=== PATIENT | female | born 1980 | race Caucasian/White ===

== ENCOUNTER → 2017-04-25 | Outpatient (CLI) | payer BC ==
--- NOTE | 2017-04-25 11:47 | WWHP ---
[facility] - HISTORY AND PHYSICAL DATE OF DICTATION: 04/25/2017. CHIEF COMPLAINT: The patient is here for her routine gynecologic exam. HPI: This is a 36-year-old, G3, P3 0-0-2 with an LMP of 04/06/2017. The patient was using the NuvaRing for control, but her prescription recently ran out. She also felt that she was more sung with the NuvaRing and also had a lower libido. She thinks this has improved since she has stopped using the NuvaRing. She believes she had done better with Vanessa in the past and is interested in trying this again. She is also experiencing occasional urinary leakage with coughing and sneezing. She now wears a pad because of this. She denies any urge incontinence symptoms. She also denies any dysuria or urinary frequency. PAST MEDICAL HISTORY: Unremarkable. MEDICATIONS: None. ALLERGIES: No known drug allergies. PAST SURGICAL HISTORY: in the past, wisdom teeth removed. PAST [employer] [facility] HISTORY: She has no history of STDs. 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 FAMILY HISTORY: Unchanged from the 2015 H and P. REVIEW OF SYSTEMS: She has gained about 17 pounds over the past year. She denies respiratory, cardiac or GI problems. PHYSICAL EXAM: Blood pressure 121/81, height 5 feet 6 inches, weight 207 pounds. BMI 33. Temperature 98.1, pulse 72. This is a well-developed, heavyset white female, who is alert and oriented x3, in no acute distress. HEENT: Within normal limits. NECK: Supple without mass or thyromegaly. Chest and lungs: Clear to auscultation. HEART: Regular rate and rhythm. Breasts are without mass or discharge. Axillary exam is negative for adenopathy. Back negative for CVA tenderness. ABDOMEN: Soft, nontender, without palpable masses. Pelvic exam normal external genitalia. Cervix and vagina appear normal. There is no significant prolapse noted. There is no cervical motion tenderness. With Valsalva and cough there is a small amount of urethral mobility, but no significant cystocele is noted. No urinary leakage was demonstrated. The uterus is multiparous, nongravid size and retroverted. The uterus is nontender. There are no palpable adnexal masses or tenderness. Rectal exam is negative for mass or tenderness and there is normal sphincter tone. EXTREMITIES: Nontender. IMPRESSION: 1. A 36-year-old female with normal gynecologic exam. 2. The patient is requesting a change in her control and would like to go back on Vanessa. 3. Mild stress urinary incontinence without significant physical findings at this time. PLAN: 1. Pap smear was deferred since she had a normal one last year. 2. Self breast examination was discussed. 3. We have had a long discussion regarding her urinary leakage. I have recommended Kegel exercises and timed voids. Instructions for Kegel exercise was given to the patient. The patient will call if she is not having significant improvement and we can consider referral to a [facility] urologist for further evaluation and possible treatment. 4. The patient was given a prescription for Vanessa and she is to take one p.o. daily and this will be started on the Sunday following the onset of her next normal menstrual period. I have recommended that she use an alternate method through the first pack. We have discussed possible risks with control pills including possible increased risk for blood clots. 5. We have discussed various options for control, including male and female sterilization, barrier methods, IUD as well as other hormonal methods. 6. She will return in 1 year and p.r.n. MMASTRID / AYAANN: [id number] /
== END ==
LOC: WWCWWP 08:06
PROVIDERS: ATTEND Obstetrics & Gynecology
DX: Z01.419 Encounter for gynecological examination (general) (routine) without abnormal findings (principal)

== ENCOUNTER 2018-09-11 06:34 | Day surgery (SDC) | payer BC ==
[2018-09-04 13:49] VITALS: BMI 34.5
[~2018-09-11 06:34] MED LIST: DEXAMETHASONE SOD PHOSPHATE 10 MG/ML 1 ML VIAL IV ONE; HEPARIN SODIUM,PORCINE 5,000 UNIT/ML 1 ML VIAL SQ ONE; HYDROmorphone 0.5 MG/0.5 ML SYRINGE IVP PRN; LACTATED RINGERS 1,000 ML IV SCH; LIDOCAINE 1% 20 ML VIAL (10MG/ML) FOR IV START INTRADERMA PRN; ONDANSETRON 4 MG/2 ML VIAL IVP ONE; SCOPOLAMINE 1.5MG/72HR PATCH TRANSDERM ONE; ceFAZolin IN SWFI 2 GM/20 ML SYRINGE IVP ONE
--- NOTE | 2018-09-11 07:50 | P.GSHP ---
History of Present Illness H&P Date: 09/11/18 Chief Complaint: Umbilical hernia This is a 38-year-old female who presents today for laparoscopic robotic- assisted repair of umbilical hernia. Patient developed a tender mass in her umbilicus. Past Medical History Past Medical History: GERD/Reflux Additional Past Medical History / Comment(s): migraines, History of Any Multi-Drug Resistant Organisms: None Reported Past Surgical History: Section Additional Past Surgical History / Comment(s): oral surgery Past Anesthesia/Blood Transfusion Reactions: Family History of Problems w/ Anesthesia, Motion Sickness Additional Past Anesthesia/Blood Transfusion Reaction / Comment(s): mother and sister PONV Smoking Status: Never smoker - Past Family History Mother Family Medical History: No Reported History Medications and Allergies Home Medications Medication Instructions Recorded Confirmed Type Multivitamins, Thera [Multivitamin 1 tab PO DAILY 09/04/18 09/11/18 History (formulary)] Allergies Allergy/AdvReac Type Severity Reaction Status Date / Time sulfamethoxazole Allergy Rash/Hives Verified 09/11/18 06:43 [From Bactrim] trimethoprim [From Bactrim] Allergy Rash/Hives Verified 09/11/18 06:43 metal Allergy Rash/Hives Uncoded 09/11/18 06:43 Surgical - Exam Vital Signs Temp Pulse Resp BP Pulse Ox 99.3 F 81 16 132/76 97 09/11/18 06:57 09/11/18 06:57 09/11/18 06:57 09/11/18 06:57 09/11/18 06:57 - General well developed, well nourished, no distress - Eyes PERRL - ENT normal pinna - Neck no masses - Respiratory normal expansion - Cardiovascular Rhythm: regular - Abdomen Abdomen: soft, non tender Hernia: umbilical (3 cm umbilical hernia) Assessment and Plan Assessment: Umbilical hernia. We'll perform laparoscopic robotic-assisted repair.
[2018-09-11] MEDS ORDERED: MIDAZOLAM 2 MG/2 ML VIAL ONE (08:07)
[2018-09-11] MEDS ORDERED: GLYCOPYRROLATE 0.2 MG/ML 2 ML VIAL ONE (08:07)
[2018-09-11] MEDS ORDERED: LIDOCAINE 1% INJ 10MG/ML (20 ML MDV) ONE (08:07)
[2018-09-11] MEDS ORDERED: PROPOFOL 10 MG/ML 20 ML VIAL IV ONE (08:07)
[2018-09-11] MEDS ORDERED: ROCURONIUM BROMIDE 10 MG/ML 10 ML VIAL IV ONE (08:07)
[2018-09-11] MEDS ORDERED: fentaNYL (PF) 50 MCG/ML 2 ML AMP ONE (08:07)
[2018-09-11] MEDS ORDERED: KETOROLAC 30 MG/ML 1 ML VIAL ONE (08:07)
[2018-09-11] MEDS ORDERED: ROPIVACAINE 5 MG/ML 30 ML VIAL ONE (08:07)
[2018-09-11] MEDS ORDERED: NEOSTIGMINE 1 MG/ML 10 ML VIAL ONE (08:07)
[2018-09-11] MEDS ORDERED: BUPIVACAIN-EPI 0.5%-1:200,000 30 ML VIAL SQ ONE (08:29)
--- NOTE | 2018-09-11 08:52 | P.ONQ ---
Anesthesiology Proc Note - PNB - Peripheral Nerve Block Performed Bilateral Rectus Abdominis Single Time Out Performed: Yes Procedure Start Time: 07:50 Procedure Stop Time: 08:00 Indication: Acute Post-Operative Pain, Requested by physician Sedation Type: Sedate with meaningful contact maintained Preparation: Sterile Prep Position: Supine Catheter: None Needle Size: 100mm (4") Needle Gauge: 20 Technique: Ultrasound Injectate: 0.5% Ropivacaine (see comment for volume) Blood Aspirated: No Pain Paresthesia on Injection Noted: No Resistance on Injection: Normal Events: Uneventful and Well Tolerated (30ml total Ropivivaine administered)
[2018-09-11] MEDS ORDERED: LACTATED RINGERS 1,000 ML IV ONE (08:57)
[2018-09-11 09:27] VITALS: TEMP 97
--- NOTE | 2018-09-11 09:55 | P.OP ---
Date of Procedure: 09/11/18 Preoperative Diagnosis: Umbilical hernia Postoperative Diagnosis: Umbilical hernia Procedure(s) Performed: Laparoscopic robotic-assisted repair of umbilical hernia Anesthesia: MELI Surgeon: Ovidio Evans Estimated Blood Loss (ml): 5 Pathology: none sent Condition: stable Disposition: PACU Description of Procedure: The patient was placed on the operating table in the supine position. He received general anesthesia. His abdomen was prepped and draped usual fashion. Using a 5 mm optical trocar under direct visualization the peritoneal cavity was entered in the left upper quadrant. The abdomen was then insufflated. The laparoscope was placed back into the perineal cavity. Next a 8 mm robotic trocar was placed in the left lower quadrant and a 12 mm robotic trocar was placed in the left lateral position. The original 5 mm trocar was exchanged for a 8 mm robotic trocar. The patient's placed in the left side up position. And the patient was undocked the robot. The umbilical hernia was visualized. Using hook cautery the peritoneum over the umbilical hernia was excised. The fascial opening was repaired using 0V LOC suture. Next a piece of 11 cm round ventral light ST mesh was placed into the. Cavity and secured with 2 OV lock suture. The patient was undocked the robot. The needles were retrieved. The fascia of the 12 mm trocar site was closed with 0 Ethibond suture. Skin was closed interrupted 3-0 Monocryl suture. Dermabond dressings was applied. Patient top procedure well and was sent to recovery room stable condition.
[2018-09-11 10:47] VITALS: BP 112/71; PULSE 65; RESP 18
[2018-09-11] MEDS ORDERED: HYDROcodone/APAP 5-325MG 1 EACH TAB PO ONE (11:45)
== END 2018-09-11 12:08 | disposition home or self-care (01) ==
LOC: OR 06:34
PROVIDERS: ATTEND Surgery
DX: K42.9 Umbilical hernia without obstruction or gangrene (principal); K21.9 Gastro-esophageal reflux disease without esophagitis; Z79.899 Other long term (current) drug therapy; Z88.1 Allergy status to other antibiotic agents; Z88.2 Allergy status to sulfonamides; Z91.048 Other nonmedicinal substance allergy status
CPT/HCPCS: 49652; S2900; 64488; 81025

== ENCOUNTER 2018-09-19 09:18 | Emergency (ER) | payer BC ==
[2018-09-19 09:24] VITALS: RESP 18; TEMP 98.4
[2018-09-19] MEDS ORDERED: EPINEPHrine 1 MG/ML 1 ML AMP SQ STA (10:02)
[2018-09-19] MEDS ORDERED: FAMOTIDINE 20 MG TAB PO STA (10:02)
--- NOTE | 2018-09-19 10:38 | ED ---
Allergic Reaction HPI - General Chief complaint: Allergic Reaction Stated complaint: poss allergic reaction Time Seen by Provider: 09/19/18 09:31 Source: patient, RN notes reviewed, old records reviewed Mode of arrival: ambulatory Limitations: no limitations - History of Present Illness Initial Comments: 38-year-old female presents today with concerns for ALLERGIC reaction.She was seen in express given IMSolu-Medrol and Benadryl earlier today. Patient reports that she started noticed hives yesterday. She recently completed a prescription for penicillin. She had hernia repair surgery. At this time Patient states that she is not currently taking antibiotic. She denies any significant tongue swelling. She states she presents of her throat seems to be somewhat swollen. She denies any nausea or vomiting. She states that the hives somewhat down somewhat since yesterday. She complains of hives over bilateral forearms chest back and abdomen. - Related Data Home Medications Medication Instructions Recorded Confirmed Multivitamins, Thera [Multivitamin 1 tab PO DAILY 09/04/18 09/11/18 (formulary)] Previous Rx's Medication Instructions Recorded Docusate [Colace] 100 mg PO BID #20 capsule 09/11/18 HYDROcodone/APAP 7.5-325MG [Weston 1 tab PO Q4H PRN 3 Days #18 tab 09/11/18 7.5-325] diphenhydrAMINE [Benadryl] 25 mg PO BID PRN #20 capsule 09/19/18 predniSONE 20 mg PO BID #10 tab 09/19/18 Allergies Allergy/AdvReac Type Severity Reaction Status Date / Time Penicillins Allergy Anaphylaxis Verified 09/19/18 10:11 sulfamethoxazole Allergy Rash/Hives Verified 09/19/18 10:00 [From Bactrim] trimethoprim [From Bactrim] Allergy Rash/Hives Verified 09/19/18 10:00 metal Allergy Rash/Hives Uncoded 09/11/18 06:43 Review of Systems ROS Statement: Those systems with pertinent positive or pertinent negative responses have been documented in the HPI. ROS Other: All systems not noted in ROS Statement are negative. Past Medical History Past Medical History: GERD/Reflux Additional Past Medical History / Comment(s): migraines, History of Any Multi-Drug Resistant Organisms: None Reported Past Surgical History: Section Additional Past Surgical History / Comment(s): oral surgery Past Anesthesia/Blood Transfusion Reactions: Family History of Problems w/ Anesthesia, Motion Sickness Additional Past Anesthesia/Blood Transfusion Reaction / Comment(s): mother and sister PONV Past Psychological History: No Psychological Hx Reported Smoking Status: Never smoker - Past Family History Mother Family Medical History: No Reported History General Exam - General Exam Comments Initial Comments: 38-year-old female. Alert and oriented. No distress. Limitations: no limitations General appearance: alert, in no apparent distress Head exam: Present: atraumatic, normocephalic, normal inspection Eye exam: Present: normal appearance, PERRL, EOMI. Absent: scleral icterus, conjunctival injection, periorbital swelling ENT exam: Present: normal exam, mucous membranes moist Neck exam: Present: normal inspection. Absent: tenderness, meningismus, lymphadenopathy Respiratory exam: Present: normal lung sounds bilaterally. Absent: respiratory distress, wheezes, rales, rhonchi, stridor Cardiovascular Exam: Present: regular rate, normal rhythm, normal heart sounds. Absent: systolic murmur, diastolic murmur, rubs, gallop, clicks GI/Abdominal exam: Present: soft, normal bowel sounds. Absent: distended, tenderness, guarding, rebound, rigid Extremities exam: Present: normal inspection, full ROM, normal capillary refill. Absent: tenderness, pedal edema, joint swelling, calf tenderness Back exam: Present: normal inspection Neurological exam: Present: alert, oriented X3, CN II-XII intact Psychiatric exam: Present: normal affect, normal mood Skin exam: Present: warm, dry, intact, normal color, rash (Patient has significant urticaria over her forearms and chest and back. ) Course Vital Signs 09/19/18 09/19/18 09:21 09:24 Temperature 98.4 F Pulse Rate 90 Respiratory 18 18 Rate Blood Pressure 141/86 O2 Sat by Pulse 99 Oximetry Medical Decision Making - Medical Decision Making Patient is a 38-year-old female presents today with concerns for ALLERGIC reaction related to penicillin. She's been off and by specimen days. She woke up yesterday with hives over her chest arms and complains of swelling to her hands. At this time Patient complained of some minor lip swelling and throat closing. Her lungs are clear. Tongue appears to be normal. She is given a subcu dose of epinephrine in monitored emergency department soles by mouth Pepcid. She reports that she has significant improvement on reevaluation. Is also evaluated by Dr. Martinez. Patient will be discharged at this time with a c ourse of Benadryl and steroids. Discussed discontinuing any further penicillins. Discussed close monitoring and she had any difficulty breathing. We also discussed following up with dermatology and rheumatology if any further symptoms persist. Disposition Clinical Impression: Allergic drug reaction Disposition: HOME SELF-CARE Condition: Good Instructions (If sedation given, give patient instructions): Anaphylaxis (ED) Additional Instructions: Is advised to avoid hot showers. Follow-up with dermatology if symptoms continue to persist or recur. Patient should take the steroids and Benadryl as prescribed. Return to emergency department if any alarming signs or symptoms occur. Prescriptions: diphenhydrAMINE [Benadryl] 25 mg PO BID PRN #20 capsule PRN Reason: Itching predniSONE 20 mg PO BID #10 tab Is patient prescribed a controlled substance at d/c from ED?: No Referrals: None,Stated [Primary Care Provider] - 1-2 days Alicia Lopez MD [STAFF PHYSICIAN] - 1-2 days Time of Disposition: 11:03
[2018-09-19 11:13] VITALS: BP 122/82; PULSE 85
== END 2018-09-19 11:09 | disposition home or self-care (01) ==
LOC: EC 09:18
DX: R22.33 Localized swelling, mass and lump, upper limb, bilateral (principal); R22.0 Localized swelling, mass and lump, head; T36.0X5A Adverse effect of penicillins, initial encounter; Z88.0 Allergy status to penicillin; Z88.1 Allergy status to other antibiotic agents; Z88.2 Allergy status to sulfonamides; Z91.09 Other allergy status, other than to drugs and biological substances
CPT/HCPCS: 99283; J0171

== ENCOUNTER → 2021-01-18 | Outpatient (CLI) | payer BC ==
[2021-01-18 11:02] VITALS: BP 121/82; PULSE 71; RESP 18; TEMP 98.2
--- NOTE | 2021-01-18 11:39 | P.HPOB ---
History of Present Illness H&P Date: 01/18/21 Chief Complaint: The patient is here for her routine gynecologic exam. This is a 40-year-old 002 with an LMP of 01/13/2021. The patient states she is doing well on oral contraception and does not plan on getting in the near future. She is without gynecologic complaints. Review of Systems She has lost about 8 pounds over the past year. She denies respiratory or cardiac problems. GI: Occasional "Sulfur burps". Past Medical History Past Medical History: GERD/Reflux Additional Past Medical History / Comment(s): migraine. 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 History of Any Multi-Drug Resistant Organisms: None Reported Past Surgical History: Section, Hernia Repair Additional Past Surgical History / Comment(s): oral surgery. Umbilical hernia repair 1999. Past Anesthesia/Blood Transfusion Reactions: Family History of Problems w/ Anesthesia, Motion Sickness Additional Past Anesthesia/Blood Transfusion Reaction / Comment(s): mother and sister PONV Past Psychological History: No Psychological Hx Reported Smoking Status: Never smoker Past Alcohol Use History: None Reported Past Drug Use History: None Reported Additional History: She has been since 2004 and works for [employer]. - Past Family History Mother Family Medical History: Hyperlipidemia Additional Family Medical History / Comment(s): Maternal grandmother had lung cancer. Father Family Medical History: Cancer Additional Family Medical History / Comment(s): Prostate and liver cancer. Medications and Allergies Home Medications Medication Instructions Recorded Confirmed Type Norgestimate-Ethinyl Estradiol 1 each PO DAILY #84 tablet 01/13/20 01/18/21 Rx [Tri-Sprintec Tablet] Allergies Allergy/AdvReac Type Severity Reaction Status Date / Time Penicillins Allergy Anaphylaxis Verified 01/18/21 10:58 sulfamethoxazole Allergy Rash/Hives Verified 01/18/21 10:58 [From Bactrim] trimethoprim [From Bactrim] Allergy Rash/Hives Verified 01/18/21 10:58 metal Allergy Rash/Hives Uncoded 01/18/21 10:58 Exam Vital Signs Temp Pulse Resp BP Pulse Ox 01/18/21 10:59 98.2 F 71 18 121/82 98 Intake and Output 01/17/21 01/18/21 01/18/21 22:59 06:59 14:59 Other: Weight 97.976 kg Height 5 feet 2 inches, weight 216 pounds, BMI 39.5. This is a well-developed well-nourished white female who is alert and oriented times 3 in no acute distress. HEENT: Within normal limits. NECK: Supple without mass or thyromegaly. CHEST AND LUNGS: Clear to auscultation. HEART: Regular rate and rhythm. BREASTS: Are without mass or discharge. AXILLARY EXAM: Negative for adenopathy. BACK: Negative for CVA tenderness. ABDOMEN: Soft, nontender, without palpable masses. PELVIC EXAM: Normal external genitalia. Cervix and vagina appear normal. There is a small amount of menstrual blood in the vagina consistent with her LMP. There is no unusual discharge. There is no evidence of prolapse. The uterus is retroverted, nongravid size and nontender. There are no palpable adnexal masses or tenderness. RECTAL EXAM: negative for mass or tenderness. EXTREMITIES: Nontender. IMPRESSION: 1. 40-year-old female doing well on oral contraception with normal gynecologic exam. PLAN: 1. Pap smear was deferred since she had a normal one on 01/13/2020. 2. Self breast awareness was discussed with the patient. 3. She will continue oral contraception in the electronic prescription will be sent to [facility] pharmacy on . 4. Osteoporosis prevention was discussed. I have stressed the importance of adequate calcium, vitamin D and regular exercise. Recommended amounts of calcium and vitamin D were also discussed. 5. She was advised to return in one year for her annual well woman exam.
== END ==
LOC: WWCWWP 10:43
PROVIDERS: ATTEND Obstetrics & Gynecology
DX: Z01.419 Encounter for gynecological examination (general) (routine) without abnormal findings (principal); G43.909 Migraine, unspecified, not intractable, without status migrainosus; Z88.0 Allergy status to penicillin; Z88.1 Allergy status to other antibiotic agents; Z88.2 Allergy status to sulfonamides

== ENCOUNTER → 2023-02-13 | Outpatient (CLI) | payer BC ==
[2023-02-13 10:08] VITALS: BP 112/80; PULSE 70; RESP 16; TEMP 98.9
--- NOTE | 2023-02-13 10:46 | P.HPOB ---
History of Present Illness H&P Date: 02/13/23 Chief Complaint: The patient is here for her routine gynecologic exam and ma mmogram. This is a 42-year-old 002 with an LMP of 02/05/2023. The patient has been doing well on oral contraception and would like to continue using this. Her prescription ran out last month. She did have a menstrual period off of the presacral pills. She is without gynecologic complaints. Review of Systems The patient's weight has been stable over the last year. She denies respiratory, cardiac, or G.I. problems. Past Medical History Past Medical History: GERD/Reflux Additional Past Medical History / Comment(s): migraine. Plantar fasciitis. 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 History of Any Multi-Drug Resistant Organisms: None Reported Past Surgical History: Section, Hernia Repair Additional Past Surgical History / Comment(s): oral surgery. Umbilical hernia repair 1999. 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 - Past Family History Mother Family Medical History: Hyperlipidemia Additional Family Medical History / Comment(s): Maternal grandmother had lung cancer. Aortic aneurysm. Father Family Medical History: Cancer Additional Family Medical History / Comment(s): Prostate and liver cancer. Medications and Allergies Home Medications Medication Instructions Recorded Confirmed Type Magnesium 200 mg PO DAILY 02/13/23 02/13/23 History Allergies Allergy/AdvReac Type Severity Reaction Status Date / Time Penicillins Allergy Anaphylaxis Verified 02/13/23 10:04 sulfamethoxazole Allergy Rash/Hives Verified 02/13/23 10:04 [From Bactrim] trimethoprim [From Bactrim] Allergy Rash/Hives Verified 02/13/23 10:04 metal Allergy Rash/Hives Uncoded 02/13/23 10:04 Exam Vital Signs Temp Pulse Resp BP Pulse Ox 02/13/23 10:05 98.9 F 70 16 112/80 97 Intake and Output 02/12/23 02/13/23 02/13/23 22:59 06:59 14:59 Other: Weight 97.522 kg Height 5 feet 6 inches, weight 215 pounds, BMI 34.7. This is a well-developed well-nourished white female who is alert and oriented times 3 in no acute distress. HEENT: Within normal limits. NECK: Supple without mass or thyromegaly. CHEST AND LUNGS: Clear to auscultation. HEART: Regular rate and rhythm. BREASTS: Are without mass or discharge. AXILLARY EXAM: Negative for adenopathy. BACK: Negative for CVA tenderness. ABDOMEN: Soft, nontender, without palpable masses. PELVIC EXAM: Normal external genitalia. Cervix and vagina appear normal. Cervix appears multiparous. There is no unusual discharge. There is no evidence of prolapse. The uterus is retroverted, nongravid size and nontender. There are no palpable adnexal masses or tenderness. RECTAL EXAM: negative for mass or tenderness and is negative for occult blood. EXTREMITIES: Nontender. IMPRESSION: 1. 42-year-old female who has been using oral contraception for control, with normal gynecologic exam. PLAN: 1. Pap smear cotest was performed. 2. Self breast awareness was discussed with the patient. We have also discussed symptoms associated with inflammatory breast cancer. 3. Screening mammogram will be done today. This will be her baseline mammogram. 4. Patient will be restarted on oral contraception. The prescription for Tri- Sprintec will be sent to [facility] pharmacy on . She will start the pills on the Sunday following the onset of her next normal menstrual period. I recommended that she use condoms through the first pack of pills. 5. We have discussed the availability of the HPV vaccination for her daughters. 6. She was advised to return in one year for her annual well woman exam.
--- NOTE | 2023-02-15 07:42 | MM ---
Reason for Exam: Screening (asymptomatic). Patient History: Menarche at age 12. First Full-Term at age 29. Patient has history of breast feeding. Last menstrual period: 02/05/2023 Risk Values: Leanne 5 year model risk: 0.7%. NCI Lifetime model risk: 12.1%. Tissue Density: The breast tissue is heterogeneously dense. This may lower the sensitivity of mammography. Findings: Analyzed By CAD. There is no suspicious group of microcalcifications in either breast. High-density focal asymmetry within the upper outer left breast at middle to posterior depth. Overall Assessment: Incomplete: need additional imaging evaluation, BI-RAD 0 Management: Diagnostic Mammogram of the left breast. A clinical breast exam by your physician is recommended on an annual basis and results should be correlated with mammographic findings. [facility] will attempt to contact patient to return for supplemental views and ultrasound if indicated. Note on Leanne scores and lifetime risk: 1. A Leanne score greater than 3% is considered moderate risk. If this is the case, consider specialist referral to assess eligibility for a risk reducing agent. If overall lifetime risk for the development of breast cancer is 20% or higher, the patient may qualify for future screening with alternating mammogram and breast MRI. Electronically signed and approved by: Luis Alberto English D.O.
== END ==
LOC: WWCWWP 09:43
PROVIDERS: ATTEND Obstetrics & Gynecology
DX: Z01.419 Encounter for gynecological examination (general) (routine) without abnormal findings (principal); K21.9 Gastro-esophageal reflux disease without esophagitis; Z88.0 Allergy status to penicillin; Z88.1 Allergy status to other antibiotic agents; Z88.2 Allergy status to sulfonamides; Z12.31 Encounter for screening mammogram for malignant neoplasm of breast; Z91.048 Other nonmedicinal substance allergy status
CPT/HCPCS: 77063; 77067

== ENCOUNTER → 2023-02-16 | Outpatient (CLI) | payer BC ==
--- NOTE | 2023-02-16 08:11 | MM ---
Reason for Exam: Additional evaluation requested from abnormal screening. Last screening mammogram was performed less than 1 month ago. Patient History: Menarche at age 12. First Full-Term at age 29. Patient has history of breast feeding. Risk Values: Leanne 5 year model risk: 0.7%. NCI Lifetime model risk: 12.1%. Prior Study Comparison: 02/13/2023 Bilateral MG 3D screening mammo w/cad, [facility]. Tissue Density: Left: The breast tissue is heterogeneously dense. This may lower the sensitivity of mammography. Findings: Analyzed By CAD. Persistent lobulated high density mass within the upper outer left breast at posterior depth approximately 8 cm from nipple measuring 1.4 cm. No suspicious microcalcifications. No architectural distortion. Overall Assessment: Incomplete: need additional imaging evaluation, BI-RAD 0 Management: Diagnostic Breast Ultrasound of the left breast. A clinical breast exam by your physician is recommended on an annual basis and results should be correlated with mammographic findings. This exam should not preclude additional follow-up of suspicious palpable abnormalities. Results were given to the patient verbally at the time of exam. Note on Leanne scores and lifetime risk: 1. A Leanne score greater than 3% is considered moderate risk. If this is the case, consider specialist referral to assess eligibility for a risk reducing agent. If overall lifetime risk for the development of breast cancer is 20% or higher, the patient may qualify for future screening with alternating mammogram and breast MRI. Electronically signed and approved by: Luis Alberto English D.O.
--- NOTE | 2023-02-16 08:48 | USB ---
Reason for Exam: Additional evaluation requested from abnormal screening. Patient History: Menarche at age 12. First Full-Term at age 29. Patient has history of breast feeding. Risk Values: Leanne 5 year model risk: 0.7%. NCI Lifetime model risk: 12.1%. Technique: Method: Targeted. Prior Study Comparison: 02/13/2023 Bilateral MG 3D screening mammo w/cad, [facility]. Findings: The upper outer quadrant of the left breast, the axilla of the left breast and the retroareolar of the left breast were scanned. Targeted ultrasound left breast from 12-3 o'clock additional evaluation of the nipple and axilla was performed. No solid or cystic lesion corresponding to mass on mammogram. There is a simple cyst identified at 12:00 centimeters from the nipple measuring 0.3 x 0.3 x 0.3 cm. Additional simple cyst identified at 1:00 4 cm of the nipple measuring 0.4 x 0.2 x 0.4 cm. Round circumscribed mass within the left breast at the nipple with hypoechoic no internal color flow. This may represent a debris-filled cyst versus other etiologies. There is some shadowing identified. Overall Assessment: Probably benign, BI-RAD 3 Management: Screening Mammogram of the left breast in 3 months. Diagnostic Breast Ultrasound of the left breast in 3 months. A clinical breast exam by your physician is recommended on an annual basis and results should be correlated with mammographic findings. This exam should not preclude additional follow-up of suspicious palpable abnormalities. Results were given to the patient verbally at the time of exam. Electronically signed and approved by: Luis Alberto English D.O.
== END | disposition home or self-care (01) ==
LOC: RADMAMWWP 07:32
PROVIDERS: ATTEND Obstetrics & Gynecology
DX: R92.8 Other abnormal and inconclusive findings on diagnostic imaging of breast (principal)
CPT/HCPCS: 77061; 77065

== ENCOUNTER → 2023-03-27 | Outpatient (CLI) | payer BC ==
[2023-03-27 15:12] LABS: Basophils # (A) 0.07 X 10*3/uL (0.00-0.10); Basophils % (A) 0.8 %; Eosinophils % (A) 3.6 %; HCT 36.7 % (37.2-46.3); Lymphocytes # (A) 2.54 X 10*3/uL (0.90-5.00); Lymphocytes % (A) 30.1 %; MCH 28.6 pg (27.0-32.0); MCHC 32.7 d/dL (32.0-37.0); MCV 87.6 FL (80.0-97.0); Mean Platelet Volume 10.8 FL (9.5-12.2); Monocytes # (A) 0.48 X 10*3/uL (0.20-1.00); Monocytes % (A) 5.7 %; NRBC Per 100 WBC 0 X 10*3/uL (0.00-0.01); Neutrophils # (A) 5.04 X 10*3/uL (1.80-7.70); Neutrophils % (A) 59.6 %; Platelet Count 264 X 10*3/uL (140-440); RBC 4.19 X 10*6/uL (4.10-5.20); RDW 12.6 % (11.5-14.5); WBC 8.45 X 10*3/uL (4.50-10.00)
[2023-03-27 16:04] LABS: Chol/HDL Ratio 3.78 Ratio; LDL Cholesterol,Calculated 107.6 mg/dL (0.0-131.0)
[2023-03-27 16:05] LABS: ALT 16 U/L (8-44); AST 20 U/L (13-35); Albumin 4.1 d/dL (3.8-4.9); Albumin/Globulin Ratio 1.46 Ratio (1.60-3.17); Alkaline Phosphatase 70 U/L (41-126); BUN/Creat Ratio 12.88 Ratio (12.00-20.00); Blood Urea Nitrogen 10.3 mg/dL (9.0-27.0); Calcium 9.1 mg/dL (8.7-10.3); Carbon Dioxide 23.2 mmol/L (21.6-31.8); Chloride 104 mmol/L (96-109); Globulin 2.8 d/dL (1.6-3.3); Glucose 84 mg/dL (70-110); Potassium 4.4 mmol/L (3.5-5.5); Sodium 140 mmol/L (135-145); Total Bilirubin 0.3 mg/dL (0.3-1.2); Total Protein 6.9 d/dL (6.2-8.2)
== END | disposition home or self-care (01) ==
LOC: LABWHC1 09:12
PROVIDERS: ATTEND Family Medicine
DX: Z00.00 Encounter for general adult medical examination without abnormal findings (principal)
CPT/HCPCS: 36415; 80053; 80061; 84443; 85025

== ENCOUNTER → 2023-05-23 | Outpatient (CLI) | payer BC ==
--- NOTE | 2023-05-23 08:42 | MM ---
Reason for Exam: Follow-up at short interval from prior study. Last screening mammogram was performed 4 month(s) ago. Patient History: Menarche at age 12. First Full-Term at age 29. Patient has history of breast feeding. Risk Values: Leanne 5 year model risk: 0.7%. NCI Lifetime model risk: 12.1%. Prior Study Comparison: 02/13/2023 Bilateral MG 3D screening mammo w/cad, [facility]. 02/16/2023 Left US breast workup limited LT, [facility]. 02/16/2023 Left MG work up mamm w CAD LT, [facility]. Tissue Density: Left: The breast tissue is heterogeneously dense. This may lower the sensitivity of mammography. Findings: Analyzed By CAD. Pattern appears stable. There is a lobular roundish area within the upper outer posterior left breast present previously. This has a similar appearance to prior examination. Additional evaluation with ultrasound is recommended. Overall Assessment: Incomplete: need additional imaging evaluation, BI-RAD 0 Management: Diagnostic Breast Ultrasound of the left breast. A negative mammogram report should not preclude additional follow up of suspicious palpable abnormalities. Patient should continue monthly self breast exam. A clinical breast exam by your physician is recommended on an annual basis and results should be correlated with mammographic findings. Electronically signed and approved by: Kenroy Dunlap D.O. Radiologis
--- NOTE | 2023-05-23 09:30 | USB ---
Reason for Exam: Follow-up at short interval from prior study. Patient History: Menarche at age 12. First Full-Term at age 29. Patient has history of breast feeding. Risk Values: Leanne 5 year model risk: 0.7%. NCI Lifetime model risk: 12.1%. Technique: Method: Targeted. Prior Study Comparison: 02/13/2023 Bilateral MG 3D screening mammo w/cad, [facility]. 02/16/2023 Left US breast workup limited LT, [facility]. 02/16/2023 Left MG work up mamm w CAD LT, [facility]. Findings: The upper outer quadrant of the left breast, the axilla of the left breast and the retroareolar of the left breast were scanned. There is a 0.3 x 0.3 x 0.2 cm anechoic structure with good through transmission 4 cm from the nipple 12:00 position may be a small cyst. A 0.5 x 0.2 x 0.4 cm elongated area may be slightly more complex cyst. Cystlike areas at the 3:00 position 2 cm from the nipple measuring 0.3 x 0.4 x 0.2 cm this has good through transmission and posterior wall enhancement. There is a solid rounded nodule with circumscribed margins measuring 0.6 x 0.6 x 0.5 cm. This is stable in size and appearance from comparison. Short-term follow-up recommended. Additional targeted imaging upper outer quadrant 6 cm in the nipple was performed. No discrete solid or cystic areas identified correlate with the mammographic finding. Given the apparent stability, short-term follow-up in 6 months is recommended to evaluate this mammographic abnormality. Right breast mammography should be performed on schedule in 6 months. Overall Assessment: Probably benign, BI-RAD 3 Management: Diagnostic Mammogram of both breasts in 6 months. Diagnostic Breast Ultrasound of the left breast in 6 months. A clinical breast exam by your physician is recommended on an annual basis and results should be correlated with mammographic findings. This exam should not preclude additional follow-up of suspicious palpable abnormalities. Results were given to the patient verbally at the time of exam. Electronically signed and approved by: Kenroy Dunlap D.O. Radiologis
== END | disposition home or self-care (01) ==
LOC: RADMAMWWP 08:15
PROVIDERS: ATTEND Obstetrics & Gynecology
DX: R92.332 Mammographic heterogeneous density, left breast (principal)
CPT/HCPCS: 77061; 77065

== ENCOUNTER → 2024-02-19 | Outpatient (CLI) | payer BC ==
[2024-02-19 08:48] VITALS: BP 130/84; PULSE 81; RESP 17; TEMP 98.4
--- NOTE | 2024-02-19 08:51 | P.HPOB ---
History of Present Illness H&P Date: 02/19/24 Chief Complaint: The patient is here for her routine gynecologic exam and ma mmogram. This is a 43-year-old with an LMP of 01/30/2024. Patient has been using Tri-Sprintec for control. States she is doing well with this and would like to continue on with it. She believes she has an abdominal hernia since when standing and bearing down she notices a lump in the upper right abdomen. She previously had a umbilical hernia that was surgically repaired. She denies pain from this. She is requesting a referral to Dr. Charlotte Sewell. She also has been experiencing some urinary incontinence. She states this started several years ago after her with her first . This is mostly noted when she is lifting or jumping. She denies any significant urge incontinence. Review of Systems The patient's weight has been stable over the last year. She denies respiratory, cardiac, or G.I. problems. Past Medical History Past Medical History: GERD/Reflux Additional Past Medical History / Comment(s): migraine. Plantar fasciitis. 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 History of Any Multi-Drug Resistant Organisms: None Reported Past Surgical History: Section, Hernia Repair Additional Past Surgical History / Comment(s): oral surgery. Umbilical hernia repair 1999. 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 - Past Family History Mother Family Medical History: Hyperlipidemia Additional Family Medical History / Comment(s): Maternal grandmother had lung cancer. Aortic aneurysm. Father Family Medical History: Cancer Additional Family Medical History / Comment(s): Prostate and liver cancer. Medications and Allergies Home Medications Medication Instructions Recorded Confirmed Type Magnesium 200 mg PO DAILY 02/13/23 02/13/23 History norgestimate-ethinyl estradioL 1 tablet PO DAILY #84 tablet 02/13/23 Rx [Tri-Sprintec Tablet] Allergies Allergy/AdvReac Type Severity Reaction Status Date / Time Penicillins Allergy Anaphylaxis Verified 02/13/23 10:04 sulfamethoxazole Allergy Rash/Hives Verified 02/13/23 10:04 [From Bactrim] trimethoprim [From Bactrim] Allergy Rash/Hives Verified 02/13/23 10:04 metal Allergy Rash/Hives Uncoded 02/13/23 10:04 Exam Blood pressure 130/84, height 5 feet 6 inches, weight 215 pounds, temperature 98.4, pulse 81, pulse oximeter 98%, BMI 35. This is a well-developed well-nourished white female who is alert and oriented times 3 in no acute distress. HEENT: Within normal limits. NECK: Supple without mass or thyromegaly. CHEST AND LUNGS: Clear to auscultation. HEART: Regular rate and rhythm. BREASTS: Are without mass or discharge. AXILLARY EXAM: Negative for adenopathy. BACK: Negative for CVA tenderness. ABDOMEN: Soft, nontender, without palpable masses. With standing and Valsalva, there is a bulge to the right of the midline just above the umbilicus which is soft and measures approximately 6 to 7 cm. This is nontender and nonpulsating. PELVIC EXAM: Normal external genitalia. Cervix and vagina appear normal. There is no unusual discharge. There is no evidence of prolapse. With Valsalva there is a very small grade 1 cystocele. With Valsalva there is no urinary leakage demonstrated. The uterus is retroverted, nongravid size and nontender. There are no palpable adnexal masses or tenderness. RECTAL EXAM: Rectovaginal exam is negative for mass or tenderness and is negative for occult blood. EXTREMITIES: Nontender. IMPRESSION: 1. 43-year-old female with normal gynecologic exam doing well on oral contraception. 2. Mild stress urinary incontinence without significant physical findings on exam today. 3. Mildly symptomatic abdominal wall hernia to the right of the midline just superior to the umbilicus. This measures approximately 6 to 7 cm. PLAN: 1. Pap smear was deferred since she had a negative Pap smear cotest on 02/13/2023 2. Self breast awareness was discussed with the patient. We have also discussed symptoms associated with inflammatory breast cancer. 3. Patient is due for a bilateral diagnostic mammogram with left breast ultrasound and this will be done today. This is following an abnormal mammogram which led to a short-term left breast imaging. 4. Osteoporosis prevention was discussed. 5. We have discussed her urinary incontinence. Have recommended Kegel exercises, timed voids, and giving herself more time to empty as completely as possible. If she is not noticing much improvement and would like a referral, we will refer her to Dr. Kennedy Deras. She will call if she desires this referral. 6. She will be referred to Dr. Charlotte Sewell, general surgeon for further evaluation of the suspected abdominal wall hernia. The patient has requested referral to this physician. 7. She was advised to return in one year for her annual well woman exam.
--- NOTE | 2024-02-19 08:59 | MM ---
Reason for Exam: Follow-up at short interval from prior study. Last mammogram was performed 1 year(s) and 1 month(s) ago. Patient History: Menarche at age 12. First Full-Term at age 29. Patient has history of breast feeding. Risk Values: Leanne 5 year model risk: 0.7%. NCI Lifetime model risk: 12.0%. Tissue Density: There are scattered areas of fibroglandular density. Findings: Analyzed By CAD. Stable appearance of the fibroglandular tissue with probable simple cyst in the lateral upper aspect approximately 7.6 cm from the nipple. Another retroareolar probable cyst measuring 6 mm is also present. Overall Assessment: Incomplete: need additional imaging evaluation, BI-RAD 0 Management: Diagnostic Breast Ultrasound of the left breast. Results were given to the patient verbally at the time of exam. Patient should continue monthly self-breast exams. A clinical breast exam by your physician is recommended on an annual basis. This exam should not preclude additional follow-up of suspicious palpable abnormalities. Note on Leanne scores and lifetime risk: 1. A Leanne score greater than 3% is considered moderate risk. If this is the case, consider specialist referral to assess eligibility for a risk reducing agent. 2. If overall lifetime risk for the development of breast cancer is 20% or higher, the patient may qualify for future screening with alternating mammogram and breast MRI. Electronically signed and approved by: Aamir Medeiros DO
--- NOTE | 2024-02-19 09:30 | USB ---
Reason for Exam: Follow-up at short interval from prior study. Patient History: Menarche at age 12. First Full-Term at age 29. Patient has history of breast feeding. Risk Values: Leanne 5 year model risk: 0.7%. NCI Lifetime model risk: 12.0%. Technique: Method: Targeted. Doppler: Color. Patient Position: RPO. Prior Study Comparison: 02/13/2023 Bilateral MG 3D screening mammo w/cad, [facility]. 02/16/2023 Left MG work up mamm w CAD LT, [facility]. 05/23/2023 Left MG 3D diag mammo w/cad LT, [facility]. Findings: The upper outer quadrant of the left breast, the axilla of the left breast and the retroareolar of the left breast were scanned. Technique utilized:US breast limited LT Image; Ultrasound imaging of: All 4 quadrants, the retroareolar region and axilla. There is a solid mass within the duct measuring up to 5 mm at 12:00 4 cm from nipple additionally this appears to connect to a larger region measuring 7 x 6 mm cyst immediately adjacent to this image 14 of 24. Additional area at 1:00 examination able with hypoechoic tissue with irregular margins measuring 9 x 7 x 17 mm. Overall Assessment: Highly suggestive of malignancy, BI-RAD 5 Management: Ultrasound Core Biopsy of the left breast. 2 sight biopsy both the adjacent lesions at o'clock 4 cm from nipple as well as the 1:00 8 cm from the nipple lesion. A clinical breast exam by your physician is recommended on an annual basis and results should be correlated with mammographic findings. This exam should not preclude additional follow-up of suspicious palpable abnormalities. Results were given to the patient verbally at the time of exam. Electronically signed and approved by: Aamir Medeiros DO
--- NOTE | 2024-02-20 12:32 | P.PN ---
Progress Note - Text Progress Note Date: 02/20/24 OUTPATIENT FOLLOW-UP NOTE TEST(S)/RESULTS: Test results from 02/19/2024 include bilateral diagnostic mammogram and left breast ultrasound showing suspicious areas in the left breast. METHOD OF NOTIFICATION: Patient was notified by phone on 02/19/2024. PATIENT COMMENTS: The patient was already aware of these results and has been scheduled for left breast biopsies on 02/25/2024. She will have follow-up with Dr. Carlos Fong about a week after that. DIAGNOSIS: Suspicious left breast findings with scheduled breast biopsies. DISCUSSION: The patient is aware that if the breast biopsies show any malignancies, that we will be discontinuing the control pills right away. PLAN: Await biopsy and results
== END ==
LOC: WWCWWP 07:58
PROVIDERS: ATTEND Obstetrics & Gynecology
DX: Z01.419 Encounter for gynecological examination (general) (routine) without abnormal findings (principal); R92.8 Other abnormal and inconclusive findings on diagnostic imaging of breast; R92.322 Mammographic fibroglandular density, left breast; N39.3 Stress incontinence (female) (male); K43.9 Ventral hernia without obstruction or gangrene; K42.9 Umbilical hernia without obstruction or gangrene; Z98.890 Other specified postprocedural states; Z88.2 Allergy status to sulfonamides; Z88.0 Allergy status to penicillin; Z88.1 Allergy status to other antibiotic agents; Z88.8 Allergy status to other drugs, medicaments and biological substances

== ENCOUNTER → 2024-02-25 | Day surgery (SDC) | payer BC ==
--- NOTE | 2024-03-07 09:03 | MM ---
Reason for Exam: Post Procedure Mammogram. Last screening mammogram was performed less than 1 month ago. Patient History: Menarche at age 12. First Full-Term at age 29. Patient has history of breast feeding. Risk Values: Leanne 5 year model risk: 0.7%. NCI Lifetime model risk: 12.0%. Prior Study Comparison: 02/13/2023 Bilateral MG 3D screening mammo w/cad, [facility]. 02/16/2023 Left US breast workup limited LT, [facility]. 02/16/2023 Left MG work up mamm w CAD LT, [facility]. 05/23/2023 Left MG 3D diag mammo w/cad LT, [facility]. 05/23/2023 Left US breast limited LT, [facility]. 02/19/2024 Bilateral MG 3D diag mammo w/cad [facility], [facility]. 02/19/2024 Left US breast limited LT, [facility]. Tissue Density: Left: There are scattered areas of fibroglandular density. Pathology Description: Location: 12 o'clock. Marker Left Behind. Needle Type: Celero Cores: 3 Skin Nicks: 1 Gauge: 13 The procedure of ultrasound guided core biopsy was explained to the patient. Benefits, alternatives, and risks were discussed. An informed consent was then obtained. The patient was placed in supine positioning for imaging and for the procedure. The overlying skin was prepped and draped in usual sterile fashion. Lidocaine buffered with bicarbonate was used as anesthetic into the skin and subcutaneous tissue up to area of concern in the left 12:00 breast. Under ultrasound guidance, a 12-gauge vacuum assisted biopsy gun device was used to obtain 5 core samples. Following this, a biopsy clip was left in lesion. The patient tolerated the procedure well without any immediate complication. The patient was kept in the radiology department for short stay after the procedure and then discharged home in stable condition. Postprocedure mammogram: The patient was transferred to mammography for physician ordered post procedure mammogram for clip placement verification. Impression: Successful, uncomplicated ultrasound guided core biopsy of area of concern in the left 12:00 breast, full pathology results to follow. Pathology Results: Result: Benign, Fibrocystic change. Pathology and radiology were reviewed. Findings are concordant. LEFT BREAST, 12:00, ULTRASOUND GUIDED CORE BIOPSY: Fibrocystic change with ruptured fibrotic cyst with surrounding fibrotic scar, acute and chronic inflammation and multinucleated histiocytic reaction to degenerated cyst contents. Negative for diagnostic malignancy. Overall Assessment: Benign Assessment: MG diagnostic mammo LT wo CAD. - Left: Benign, BI-RAD 2. Management: Diagnostic Mammogram of the left breast in 6 months. Electronically signed and approved by: Jose Santos M.D. Radiologis
== END ==
LOC: RADUSWWP 12:46
PROVIDERS: ATTEND Surgery
DX: N60.12 Diffuse cystic mastopathy of left breast (principal); N61.0 Mastitis without abscess
CPT/HCPCS: 88305; 77065; 19083; A4648

== ENCOUNTER → 2024-03-06 | Outpatient (CLI) | payer BC ==
[2024-03-06 08:41] VITALS: BP 135/88; PULSE 70; RESP 16; TEMP 98.3
--- NOTE | 2024-03-06 09:39 | P.GSCN ---
History of Present Illness Consult date: 03/06/24 Reason for Consult: BIRAD 5 biopsy left breast/repeat ultrasound felt to be most likely benign consistent with fibrocystic breast changes Requesting physician: Alonso Lucio History of present illness: Xiomara is a 43-year-old white female who underwent a bilateral diagnostic mammogram on 02-19-2024. This revealed stable appearance of fibroglandular tissue with probable simple cyst in the lateral aspect approximately 7.6 cm from the nipple of the left breast. A diagnostic left breast ultrasound was recommended. This was performed on the same date. This revealed a solid mass within the duct up to 5 mm at 12:00 as well as an additional area at 1:00 9 x 7 x 17 mm which was felt to have irregular margins. This was regarded as by BI-RADS 5. An ultrasound core biopsy of the left breast was recommended. The patient underwent an ultrasound-guided core biopsy on . This revealed fibrocystic change with ruptured fibrotic cyst with surrounding fibrotic scar, acute and chronic inflammation and multinucleate histiocyte reaction to degenerated cyst contents. This was negative for malignancy. At the 1 o'clock position no specific lesion could be identified for an ultrasound core biopsy. Her radiographs were personally reviewed with Dr. Dunlap from radiology. His recommendation was to repeat an ultrasound of the left breast to assure that there was nothing of concern on today's findings. The repeat ultrasound was done and no lesion of concern was identified. The recommendation was for a repeat left breast mammogram in 6 months. The patient did not feel any lumps masses or nodules of concern in either breast. She has not had any recent trauma or infection in the breast. She has not had any surgery on her breast. Leanne Risk: 0.7% Lifetime risk: 12% caffiene: 2 cans coke/day nicotine: none chocolate: occasional BCP: uses them and has been on them for about 5 years hormones: none Family History: father: liver cancer non drinker Hormonal History: menarche: 13 ,P:3 (first at of a brain anyuresm)age at first : 29; breast fed: yes perioda regular: LMP 2 weeks ago Surgical History: [place] teeth Umbilical hernia Medical history: None Social history: Nicotine: Negative Alcohol: Negative Drugs: Negative Review of Systems - Constitutional Denies fever, Denies weight loss - EENT Eyes: denies blurred vision Ears: deny: decreased hearing, tinnitus Ears, nose, mouth and throat: Denies dysphagia - Breasts bilateral: as per HPI - Cardiovascular Denies chest pain, Denies shortness of breath - Respiratory Denies cough, Denies 7 - Gastrointestinal Reports as per HPI - Genitourinary Genitourinary: Denies dysuria, Denies hematuria Menstruation: Reports as per HPI - Musculoskeletal Reports as per HPI - Integumentary Denies rash, Denies unusual bruising - Neurological Reports headaches, Denies syncope - Psychiatric Reports as per HPI - Endocrine Reports as per HPI - Hematologic/Lymphatic Denies easy bleeding, Denies easy bruising - Allergic/Immunologic Reports as per HPI, Reports seasonal allergies Past Medical History Past Medical History: GERD/Reflux Additional Past Medical History / Comment(s): migraine. Plantar fasciitis. 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 History of Any Multi-Drug Resistant Organisms: None Reported Past Surgical History: Section, Hernia Repair Additional Past Surgical History / Comment(s): oral surgery. Umbilical hernia repair 1999. Past Anesthesia/Blood Transfusion Reactions: Family History of Problems w/ Anesthesia, Motion Sickness Additional Past Anesthesia/Blood Transfusion Reaction / Comm: mother and sister PONV Past Psychological History: No Psychological Hx Reported Smoking Status: Never smoker Past Alcohol Use History: None Reported Past Drug Use History: None Reported - Past Family History Mother Family Medical History: Hyperlipidemia Additional Family Medical History / Comment(s): Maternal grandmother had lung cancer. Aortic aneurysm. Father Family Medical History: Cancer Additional Family Medical History / Comment(s): Prostate and liver cancer. Medications and Allergies Home Medications Medication Instructions Recorded Confirmed Type Magnesium 200 mg PO DAILY 02/13/23 03/06/24 History Ferrous Sulfate [Iron (65 MG 65 mg PO DAILY 02/19/24 03/06/24 History Elemental)] norgestimate-ethinyl estradioL 1 tablet PO DAILY #84 tablet 02/19/24 03/06/24 Rx [Tri-Sprintec Tablet] Allergies Allergy/AdvReac Type Severity Reaction Status Date / Time Penicillins Allergy Anaphylaxis Verified 03/06/24 08:38 sulfamethoxazole Allergy Rash/Hives Verified 03/06/24 08:38 [From Bactrim] trimethoprim [From Bactrim] Allergy Rash/Hives Verified 03/06/24 08:38 metal Allergy Rash/Hives Uncoded 03/06/24 08:38 Surgical - Exam Vital Signs Temp Pulse Resp BP Pulse Ox 98.3 F 70 16 135/88 99 03/06/24 08:38 03/06/24 08:38 03/06/24 08:38 03/06/24 08:38 03/06/24 08:38 - General no distress - Eyes normal ocular movement - Neck trachea midline - Respiratory normal respiratory effort - Cardiovascular Rhythm: regular Heart Sounds: normal: S1, S2 - Abdomen Abdomen: soft, non tender, no guarding, no rigid, no rebound - Musculoskeletal normal gait - Psychiatric oriented to time Breast Exam: Bra: 40D Inspection: Bilateral grade 2/3 ptosis Palpation: Right breast: Multi positional exam dense breast no dominant masses or nodules of concern, fibrocystic changes Right axilla: No adenopathy of concern Left breast: Multi positional exam dense breast, no dominant masses or nodules of concern, biopsy site clean and dry and periareolar region in the lateral aspect of the left breast Left axilla: No adenopathy of concern Bilateral fungal infection under the breast Results Bilateral mammogram and ultrasound were reviewed personally with Dr. Dunlap and discussed, secondary to this a repeat left breast ultrasound on 03-06-24 was performed which did not reveal any lesions at the 1 o'clock position of the left breast in the area of concern that was called a BI-RADS 5 was no longer visible and it was felt that the patient could have a repeat left breast mammogram and ultrasound in 6 months. Assessment and Plan Assessment: Impression: Fibrocystic breast changes Fungal infection under breast Plan: Nystatin Repeat left breast mammogram and ultrasound in 6 months with physician exam at that time Patient to follow-up sooner any questions or concerns We discussed attempting to get an MRI and at this time we are going to follow conservatively CC: Khadijah
--- NOTE | 2024-03-06 09:48 | USB ---
Reason for Exam: Follow-up at short interval from prior study. Patient History: Menarche at age 12. First Full-Term at age 29. Patient has history of breast feeding. Risk Values: Leanne 5 year model risk: 0.7%. NCI Lifetime model risk: 12.0%. Technique: Method: Targeted. Prior Study Comparison: 02/16/2023 Left MG work up mamm w CAD LT, [facility]. 05/23/2023 Left MG 3D diag mammo w/cad LT, [facility]. 02/19/2024 Bilateral MG 3D diag mammo w/cad [facility], [facility]. Findings: The upper outer quadrant of the left breast, the axilla of the left breast and the retroareolar of the left breast were scanned. No solid or cystic masses are identified. Attention is paid to the 1:00 position. No suspicious abnormalities evident. The biopsy clip in the anterior left breast was identified. Overall Assessment: Probably benign, BI-RAD 3 Management: Diagnostic Mammogram of the left breast in 6 months. A clinical breast exam by your physician is recommended on an annual basis and results should be correlated with mammographic findings. This exam should not preclude additional follow-up of suspicious palpable abnormalities. Results were given to the patient verbally at the time of exam. [facility], , 03/06/2024 9:22 AM. Electronically signed and approved by: Kenroy Dunlap D.O. Radiologis
== END ==
LOC: WWCWWP 07:56
PROVIDERS: ATTEND Surgery
DX: R92.8 Other abnormal and inconclusive findings on diagnostic imaging of breast (principal); N60.11 Diffuse cystic mastopathy of right breast; B48.8 Other specified mycoses; Z88.1 Allergy status to other antibiotic agents; Z88.0 Allergy status to penicillin; Z88.2 Allergy status to sulfonamides; Z88.8 Allergy status to other drugs, medicaments and biological substances

== ENCOUNTER → 2024-08-25 | Outpatient (CLI) | payer BC ==
--- NOTE | 2024-08-25 10:08 | USB ---
Reason for Exam: Follow-up at short interval from prior study. Patient History: Menarche at age 12. First Full-Term at age 29. Patient has history of breast feeding. 02/25/2024, Benign US biopsy breast VAD LT on the left side. Risk Values: Leanne 5 year model risk: 1.3%. NCI Lifetime model risk: 14.4%. Technique: Method: Targeted. Prior Study Comparison: 05/23/2023 Left MG 3D diag mammo w/cad LT, [facility] 02/19/2024 Bilateral MG 3D diag mammo w/cad [facility], [facility]. 02/25/2024 Left MG diagnostic mammo LT wo CAD., [facility]. Findings: The upper outer quadrant of the left breast, the axilla of the left breast and the retroareolar of the left breast were scanned. Lobulated mass at the approximate 1:00 position left breast 6.4 cm from the nipple is not confidently demonstrated on ultrasound and therefore stereotactic core biopsy is advised. Additional tiny 3 mm nodular density. Prior biopsy of the left 12:00 position 4 cm from the nipple.. Overall Assessment: Suspicious, BI-RAD 4 Management: Stereotactic Core Biopsy of the left breast. A clinical breast exam by your physician is recommended on an annual basis and results should be correlated with mammographic findings. This exam should not preclude additional follow-up of suspicious palpable abnormalities. Results were given to the patient verbally at the time of exam. [facility], , 08/25/2024 10:05 AM. Electronically signed and approved by: Jose Santos M.D. Radiologis
--- NOTE | 2024-08-28 13:10 | MM ---
Reason for Exam: Follow-up at short interval from prior study. Last screening mammogram was performed 6 month(s) ago. Patient History: Menarche at age 12. First Full-Term at age 29. Patient has history of breast feeding. 02/25/2024, Benign US biopsy breast VAD LT on the left side. Risk Values: Leanne 5 year model risk: 1.3%. NCI Lifetime model risk: 14.4%. Prior Study Comparison: 05/23/2023 Left MG 3D diag mammo w/cad LT, [facility]. 02/19/2024 Bilateral MG 3D diag mammo w/cad [facility], [facility]. 02/25/2024 Left MG diagnostic mammo LT wo CAD., [facility]. Tissue Density: Left: The breasts are heterogeneously dense, which may obscure small masses. Findings: Analyzed By CAD. Upper outer quadrant left breast there is a 1 cm lobulated nodule is 6.4 cm. Ultrasound recommended. Smaller 3 mm nodule upper outer quadrant 5 cm from the nipple also requires ultrasound characterization. The remainder of the left breast is unremarkable. Overall Assessment: Incomplete: need additional imaging evaluation, BI-RAD 0 Management: Diagnostic Breast Ultrasound of the left breast. . Results were given to the patient verbally at the time of exam. Patient should continue monthly self-breast exams. A clinical breast exam by your physician is recommended on an annual basis. This exam should not preclude additional follow-up of suspicious palpable abnormalities. Note on Leanne scores and lifetime risk: 1. A Leanne score greater than 3% is considered moderate risk. If this is the case, consider specialist referral to assess eligibility for a risk reducing agent. 2. If overall lifetime risk for the development of breast cancer is 20% or higher, the patient may qualify for future screening with alternating mammogram and breast MRI. [facility], , 08/25/2024 9:43 AM. Electronically signed and approved by: Jose Santos M.D. Radiologis
== END | disposition home or self-care (01) ==
LOC: RADMAMWWP 09:23
PROVIDERS: ATTEND Surgery
DX: R92.8 Other abnormal and inconclusive findings on diagnostic imaging of breast (principal); R92.332 Mammographic heterogeneous density, left breast
CPT/HCPCS: 77061; 77065

== ENCOUNTER → 2024-09-05 | Day surgery (SDC) | payer BC ==
[2024-09-05 07:43] VITALS: RESP 16
[2024-09-05 09:28] VITALS: BP 129/88; PULSE 67; TEMP 97.6
--- NOTE | 2024-09-05 09:49 | P.BCAON ---
Date of Procedure: 09/05/24 Preoperative Diagnosis: Lesion 1 o'clock position left breast not seen on ultrasound Postoperative Diagnosis: Same Procedure(s) Performed: Left breast stereotactic core biopsy Anesthesia: local Surgeon: Negra Negrete Pathology: other Condition: stable Disposition: same day Indications for Procedure: Abnormal left breast mammogram Description of Procedure: The patient was taken to the stereotactic core biopsy room following informed consent. Real Estate Executive Assistant film of the left breast was obtained. A CC from above approach was utilized. The area of concern was identified. The lesion was targeted. The breast was prepped using chlorhexidine. 20 cc of 1% lidocaine were used to anesthetize the area of concern. A 9 gauge vacuum-assisted core rotating biopsy needle was driven to the correct coordinates. Prefire film was obtained. The needle was noted to be in the correct location. The needle was fired. A post fire film was obtained. The needle was noted to be in the correct location. 14 core biopsy specimens were obtained. Secondary to the fact this was not for m icrocalcifications radiograph of the specimen was not performed. Secure frances Top-Hat clip was deployed. The clip appeared to be in the correct location. The patient tolerated the procedure in stable condition. Specimen is sent to pathology. The patient will follow-up in 1 week.
== END ==
LOC: RADMAMWWP 07:30
PROVIDERS: ATTEND Surgery
DX: N60.82 Other benign mammary dysplasias of left breast (principal); N60.12 Diffuse cystic mastopathy of left breast; R92.8 Other abnormal and inconclusive findings on diagnostic imaging of breast
CPT/HCPCS: 88305; 19081; A4648; J2003

== ENCOUNTER → 2024-09-05 | Outpatient (CLI) | payer BC | LOC: WWCWWP 07:29 | PROVIDERS: ATTEND Surgery | DX: Z53.9 Procedure and treatment not carried out, unspecified reason (principal) ==

== ENCOUNTER → 2024-09-18 | Outpatient (CLI) | payer BC ==
[2024-09-18 12:03] VITALS: BP 131/79; PULSE 73; RESP 17; TEMP 97.9
--- NOTE | 2024-09-18 12:22 | P.PN ---
Subjective Progress Note Date: 09/18/24 Principal diagnosis: stero biopsy results/benign /concordant BIRAD 5 biopsy left breast/repeat ultrasound felt to be most likely benign consistent with fibrocystic breast changes Requesting physician: Alonso Lucio History of present illness: Xiomara is a 44-year-old white female who underwent a bilateral diagnostic mammogram on 02-19-2024. This revealed stable appearance of fibroglandular tissue with probable simple cyst in the lateral aspect approximately 7.6 cm from the nipple of the left breast. A diagnostic left breast ultrasound was recommended. This was performed on the same date. This revealed a solid mass within the duct up to 5 mm at 12:00 as well as an additional area at 1:00 9 x 7 x 17 mm which was felt to have irregular margins. This was regarded as by BI-RADS 5. An ultrasound core biopsy of the left breast was recommended. The patient underwent an ultrasound-guided core biopsy on . This revealed fibrocystic change with ruptured fibrotic cyst with surrounding fibrotic scar, acute and chronic inflammation and multinucleated histiocyte reaction to degenerated cyst contents. This was negative for malignancy. At the 1 o'clock position no specific lesion could be identified for an ultrasound core biopsy. Her radiographs were personally reviewed with Dr. Dunlap from radiology. His recommendation was to repeat an ultrasound of the left breast to assure that there was nothing of concern. The repeat ultrasound was done and no lesion of concern was identified. The recommendation was for a repeat left breast mammogram in 6 months. This was repeated as a left breast mammogram and ultrasound on 08-25-24. This led to a stero biopsy on 09-05-24 which was felt to be benign concordant this was personally reviewed and discussed with Dr. Núñez. Leanne Risk: 1.3% Lifetime risk: 14.4% caffiene: 2 cans coke/day nicotine: none chocolate: occasional BCP: uses them and has been on them for about 5 years hormones: none Family History: father: liver cancer non drinker Hormonal History: menarche: 13 ,P:3 (first at of a brain anyuresm)age at first : 29; breast fed: yes perioda regular: LMP 2 weeks ago Surgical History: Angelica teeth Umbilical hernia Medical history: None Social history: Nicotine: Negative Alcohol: Negative Drugs: Negative Review of Systems - Constitutional Denies fever, Denies weight loss - EENT Eyes: denies blurred vision Ears: deny: decreased hearing, tinnitus Ears, nose, mouth and throat: Denies dysphagia - Breasts bilateral: as per HPI - Cardiovascular Denies chest pain, Denies shortness of breath - Respiratory Denies cough - Gastrointestinal Reports as per HPI - Genitourinary Genitourinary: Denies dysuria, Denies hematuria Menstruation: Reports as per HPI - Musculoskeletal Reports as per HPI - Integumentary Denies rash, Denies unusual bruising - Neurological Reports headaches, Denies syncope - Psychiatric Reports as per HPI - Endocrine Reports as per HPI - Hematologic/Lymphatic Denies easy bleeding, Denies easy bruising - Allergic/Immunologic Reports as per HPI, Reports seasonal allergies Past Medical History Past Medical History: GERD/Reflux Additional Past Medical History / Comment(s): migraine. Plantar fasciitis. 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 History of Any Multi-Drug Resistant Organisms: None Reported Past Surgical History: Section, Hernia Repair Additional Past Surgical History / Comment(s): oral surgery. Umbilical hernia repair 1999. Past Anesthesia/Blood Transfusion Reactions: Family History of Problems w/ An esthesia, Motion Sickness Additional Past Anesthesia/Blood Transfusion Reaction / Comm: mother and sister PONV Past Psychological History: No Psychological Hx Reported Smoking Status: Never smoker Past Alcohol Use History: None Reported Past Drug Use History: None Reported - Past Family History Mother Family Medical History: Hyperlipidemia Additional Family Medical History / Comment(s): Maternal grandmother had lung cancer. Aortic aneurysm. Father Family Medical History: Cancer Additional Family Medical History / Comment(s): Prostate and liver cancer. Medications and Allergies Home Medications Medication Instructions Recorded Confirmed Type Magnesium 200 mg PO DAILY 02/13/23 03/06/24 History Ferrous Sulfate [Iron (65 MG 65 mg PO DAILY 02/19/24 03/06/24 History Elemental)] norgestimate-ethinyl estradioL 1 tablet PO DAILY #84 tablet 02/19/24 03/06/24 Rx [Tri-Sprintec Tablet] Allergies Allergy/AdvReac Type Severity Reaction Status Date / Time Penicillins Allergy Anaphylaxis Verified 03/06/24 08:38 sulfamethoxazole Allergy Rash/Hives Verified 03/06/24 08:38 [From Bactrim] trimethoprim [From Bactrim] Allergy Rash/Hives Verified 03/06/24 08:38 metal Allergy Rash/Hives Uncoded 03/06/24 08:38 Objective - Vital Signs Vital signs: Vital Signs Temp 97.9 F 09/18/24 12:01 Pulse 73 09/18/24 12:01 Resp 17 09/18/24 12:01 BP 131/79 09/18/24 12:01 Pulse Ox 99 09/18/24 12:01 FiO2 Intake & Output 09/17/24 09/18/24 09/18/24 18:59 06:59 18:59 Weight 97.522 kg - Constitutional General appearance: Present: cooperative - EENT Eyes: Present: EOMI ENT: Present: hearing grossly normal - Neck Neck: Present: normal ROM - Respiratory Respiratory: bilateral: CTA - Cardiovascular Rhythm: regular Heart sounds: normal: S1, S2 - Integumentary Integumentary: Present: normal turgor - Musculoskeletal Musculoskeletal: Present: gait normal - Psychiatric Psychiatric: Present: A&O x's 3, appropriate affect, intact judgment & insight - Additional findings Additional findings: Breast Exam: Bra: 40D Inspection: Biopsy Site left breast clean and dry no evidence of hematoma or infection Assessment and Plan Assessment: Impression: Bilateral mammogram and ultrasound were reviewed personally with Dr. Dunlap in Feb 2024, and discussed, secondary to this a repeat left breast ultrasound on 03-06-24 was performed which did not reveal any lesions at the 1 o'clock position of the left breast in the area of concern that was called a BI-RADS 5 was no longer visible and it was felt that the patient could have a repeat left breast mammogram and ultrasound in 6 months. This was repeated as a left breast mammogram and ultrasound on 08-25-24. This led to a stero biopsy on 09-05-24 which was felt to be benign concordant/ personally reviewed with Dr. Núñez Plan: Fibrocystic breast changes Repeat left breast mammogram and ultrasound in 3 months with examination at that time Patient to follow-up sooner any questions or concerns. Seen in conjunction with her . At this time there is nothing radiographically to warrant interventional biopsy. We are however going to keep a close evaluation and she will have repeat radiographic evaluation and examination in 3 months. CC: Dr. Lucio
== END ==
LOC: WWCWWP 11:37
PROVIDERS: ATTEND Surgery
DX: Z12.31 Encounter for screening mammogram for malignant neoplasm of breast (principal); N60.12 Diffuse cystic mastopathy of left breast; Z88.0 Allergy status to penicillin; Z88.2 Allergy status to sulfonamides; Z88.1 Allergy status to other antibiotic agents; Z91.048 Other nonmedicinal substance allergy status

== ENCOUNTER 2024-10-10 22:28 | Emergency (ER) | payer BC ==
[2024-10-10 22:34] VITALS: BP 141/86; PULSE 78; RESP 16; TEMP 98.7
[2024-10-10] MEDS: LIDOCAINE/EPINEPHR/TETRACAINE 5 ML BOTTLE TOPICAL ONE (22:51)
[2024-10-10] MEDS: TOPICAL SKIN ADHESIVE 1 EACH AMP TOPICAL ONE (22:53)
[2024-10-10] MEDS: DIPH,PERTUS(ACELL)TETVAC-LF 0.5 ML VIAL IM ONE (22:53)
--- NOTE | 2024-10-10 23:01 | ED ---
General Adult HPI - General Chief complaint: Head Injury Stated complaint: Head laceration Time Seen by Provider: 10/10/24 22:34 Source: patient Mode of arrival: EMS Limitations: no limitations - History of Present Illness Initial comments: 44-year-old female presenting with chief complaint of head injury. Patient was hit in the forehead with a hockey puck tonight. No loss of consciousness. No blood thinners. No nausea, vomiting, dizziness, vision or hearing changes, numbness, tingling, weakness. Unsure when her last tetanus shot was. Bleeding is well-controlled at this time. Laceration is about 3 cm long. No other injuries. - Related Data Home Medications Medication Instructions Recorded Confirmed Magnesium 200 mg PO DAILY PRN 02/13/23 09/18/24 Ferrous Sulfate [Iron (65 MG 65 mg PO DAILY 02/19/24 09/18/24 Elemental)] Cholecalciferol [Vitamin D3 (25 25 mcg PO DAILY 08/27/24 09/18/24 Mcg = 1000 Iu)] Previous Rx's Medication Instructions Recorded norgestimate-ethinyl estradioL 1 tablet PO DAILY #84 tablet 02/19/24 [Tri-Sprintec Tablet] Allergies Allergy/AdvReac Type Severity Reaction Status Date / Time Penicillins Allergy Anaphylaxis Verified 10/10/24 22:29 sulfamethoxazole Allergy Rash/Hives Verified 10/10/24 22:29 [From Bactrim] trimethoprim [From Bactrim] Allergy Rash/Hives Verified 10/10/24 22:29 metal Allergy Rash/Hives Uncoded 10/10/24 22:29 Review of Systems ROS Statement: Those systems with pertinent positive or pertinent negative responses have been documented in the HPI. ROS Other: All systems not noted in ROS Statement are negative. Past Medical History Past Medical History: GERD/Reflux Additional Past Medical History / Comment(s): migraine. Plantar fasciitis. 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 History of Any Multi-Drug Resistant Organisms: None Reported Past Surgical History: Section, Hernia Repair Additional Past Surgical History / Comment(s): oral surgery. Umbilical hernia repair 1999. Past Anesthesia/Blood Transfusion Reactions: Family History of Problems w/ Anesthesia, Motion Sickness Additional Past Anesthesia/Blood Transfusion Reaction / Comment(s): mother and sister PONV Past Psychological History: No Psychological Hx Reported Smoking Status: Never smoker Past Alcohol Use History: None Reported Past Drug Use History: None Reported - Past Family History Mother Family Medical History: Hyperlipidemia Additional Family Medical History / Comment(s): Maternal grandmother had lung cancer. Aortic aneurysm. Father Family Medical History: Cancer Additional Family Medical History / Comment(s): Prostate and liver cancer. General Exam Limitations: no limitations General appearance: alert, in no apparent distress Expanded Head exam: Present: laceration (3 cm laceration of the forehead) Eye exam: Present: normal appearance, PERRL, EOMI. Absent: periorbital swelling Neck exam: Present: normal inspection. Absent: meningismus Respiratory exam: Absent: respiratory distress Cardiovascular Exam: Present: regular rate Neurological exam: Present: alert, oriented X3 Expanded Eye Response: (4) open spontaneously Motor Response: (6) obeys commands Verbal Response: (5) oriented [place] Total: 15 Psychiatric exam: Present: normal affect, normal mood Course Vital Signs 10/10/24 22:29 Temperature 98.7 F Pulse Rate 78 Respiratory 16 Rate Blood Pressure 141/86 O2 Sat by Pulse 98 Oximetry Procedures - Laceration Laceration #1 Consent Obtained: verbal consent Indication: laceration Site: face Size (cm): 3 Description: linear Depth: simple, single layer Pre-repair: wound explored Type of Sutures: other (Dermabond) Patient Tolerated Procedure: well Medical Decision Making - Medical Decision Making Was pt. sent in by a medical professional or institution (DILLAN Felix, SEISMIC OBSERVER, urgent ca re, hospital, or group home...) When possible be specific @ -No Did you speak to anyone other than the patient for history (EMS, parent, family, police, friend...)? What history was obtained from this source @ -No Did you review nursing and triage notes (agree or disagree)? Why? @ -I reviewed and agree with nursing and triage notes Were old charts reviewed (outside hosp., previous admission, EMS record, old EKG, old radiological studies, urgent care reports/EKG's, group home records)? Report findings @ -No old charts were reviewed Differential Diagnosis (chest pain, altered mental status, abdominal pain women, abdominal pain men, vaginal bleeding, weakness, fever, dyspnea, syncope, headache, dizziness, GI bleed, back pain, seizure, CVA, palpatations, mental health, musculoskeletal)? @ -Differential includes uncomplicated head injury, concussion, fracture, hemorrhage, not an all-inclusive list EKG interpreted by me (3pts min.). @ -As above X-rays interpreted by me (1pt min.). @ -None done CT interpreted by me (1pt min.). @ -None done U/S interpreted by me (1pt. min.). @ -None done What testing was considered but not performed or refused? (CT, X-rays, U/S, labs)? Why? @ -CT considered, however negative [place] head CT rules and patient is agreeable with foregoing CT at this time What meds were considered but not given or refused? Why? @ -None Did you discuss the management of the patient with other professionals (professionals i.e. , PA, SEISMIC OBSERVER, lab, RT, psych nurse, clinical social worker, car seat upholsterer, teacher, juvenile probation officer, sample case porter)? Give summary @ -No Was smoking cessation discussed for >3mins.? @ -No Was critical care preformed (if so, how long)? @ -No Were there social determinants of health that impacted care today? How? (Homelessness, low income, unemployed, alcoholism, drug addiction, transportation, low edu. Level, literacy, decrease access to med. care, assisted, rehab)? @ -No Was there de-escalation of care discussed even if they declined (Discuss DNR or withdrawal of care, Hospice)? DNR status @ -No What co-morbidities impacted this encounter? (DM, HTN, Smoking, COPD, CAD, Cancer, CVA, ARF, Chemo, Hep., AIDS, mental health diagnosis, sleep apnea, morbid obesity)? @ -None Was patient admitted / discharged? Hospital course, mention meds given and route, prescriptions, significant lab abnormalities, going to OR and other pertinent info. @ -44-year-old female presenting with chief complaint of head injury. She was hit in the forehead with a hockey puck this evening. No loss of consciousness or blood thinners. She has a 3 cm laceration to the forehead. Tetanus is updated today. Negative [place] head CT rules, discussed pros and cons of head CT with the patient and she is agreeable to foregoing CT today. Laceration is repaired using Dermabond. Patient is educated on wound care and signs of infection as well as alarm symptoms after head injury. Follow-up with PCP. Report back to ER with any new or worsening symptoms. Discussed return parameters and answered all questions. Patient conveyed verbal understanding and agreed to the plan. I discussed this case in detail with my attending Dr. Taylor Undiagnosed new problem with uncertain prognosis? @ -No Drug Therapy requiring intensive monitoring for toxicity (Heparin, Nitro, Insulin, Cardizem)? @ -No Were any procedures done? @ -Laceration repair Diagnosis/symptom? @ -Minor head injury, facial laceration Acute, or Chronic, or Acute on Chronic? @ -Acute Uncomplicated (without systemic symptoms) or Complicated (systemic symptoms)? @ -Uncomplicated Side effects of treatment? @ -No Exacerbation, Progression, or Severe Exacerbation? @ -No Poses a threat to life or bodily function? How? (Chest pain, [place], ID, pneumonia, PE, COPD, DKA, ARF, appy, cholecystitis, CVA, Diverticulitis, Homicidal, Suicidal, threat to staff... and all critical care pts) @ -Seemingly low likelihood at this time Disposition Clinical Impression: Minor head injury, Facial laceration Disposition: HOME SELF-CARE Condition: Good Instructions (If sedation given, give patient instructions): Head Injury (ED), Skin Adhesive Care (ED), Facial Laceration (ED) Additional Instructions: Follow-up with PCP. Report back to ER with any new or worsening symptoms, including but not limited to nausea and vomiting, confusion, difficulty arousing from sleep. Monitor for signs of infection, including but not limited to redness, swelling, pain, discharge, fever, chills. Keep the wound clean and dry and covered. Avoid fully submerging the wound. Clean with soap and water. Do not apply Neosporin or other ointment-based products as this will break down the skin adhesive. Is patient prescribed a controlled substance at d/c from ED?: No Referrals: None,Stated [REFERRING] - 1-2 days Forms: Area PCPs Time of Disposition: 23:22
== END 2024-10-10 23:24 | disposition home or self-care (01) ==
LOC: EC 22:28
DX: S01.81XA Laceration without foreign body of other part of head, initial encounter (principal); Z88.0 Allergy status to penicillin; Z88.1 Allergy status to other antibiotic agents; Z88.2 Allergy status to sulfonamides; Z91.09 Other allergy status, other than to drugs and biological substances; W21.220A Struck by ice hockey puck, initial encounter
CPT/HCPCS: 12013; 90471; 90715; 99284